=== PATIENT | female | born 1975 | race Caucasian/White ===

== ENCOUNTER 2021-04-21 10:56 | Outpatient (CLI) | payer BC, SELFPAY ==
[2021-04-21 18:34] LABS: Add Urine Microscopic? NO; Appearance Urine Clear (Clear); Bilirubin Urine Negative (Negative); Blood Urine Negative (Negative); Color Urine Yellow (Yellow); Glucose Urine UA Negative (Negative); Ketones Urine Negative (Negative); Leukocyte Esterase Ur Negative LEU/UL (NEGATIVE); Nitrate Urine Negative (Negative); Protein Urine Negative (Negative); Specific Grav Ur 1.014 (1.001-1.035); Urobilinogen Urine Negative mg/dL (<2.0)
== END 2021-04-21 10:57 | disposition home or self-care (01) ==
PROVIDERS: PCP Family Medicine; Visit Provider Family Medicine
DX: M54.5 Low back pain (principal)
CPT/HCPCS: 81003; 87086; 87088

== ENCOUNTER 2021-10-23 09:25 | Outpatient (CLI) | payer BC, SELFPAY ==
[2021-10-23 10:00] LABS: Hematocrit 39.2 % (37.0-47.0); Hemoglobin 13.3 g/dL (12.0-15.0); Mean Corpuscular HGB Conc 33.9 g/dl (32-36); Mean Corpuscular Hemoglobin 30.4 pg (26-34); Mean Corpuscular Volume 89.7 fl (80-100); Mean Platelet Volume 10.6 fl (7.4-10.4); Platelet Count Result 199 k/mm3 (150-375); Red Blood Count 4.37 M/mm3 (4.2-5.4); Red Cell Distribution Width 11.9 % (11.5-14.5); White Blood Count 4.1 K/mm3 (4.5-10.0)
[2021-10-23 10:12] LABS: Alanine Aminotransferase 23 U/L (4-35); Albumin Level 4.3 g/dL (3.5-5.1); Alkaline Phosphatase 92 U/L (38-126); Anion Gap 3 mmol/L (8-16); Aspartate Amino Transferase 26 U/L (14-36); Bilirubin,Total 0.6 mg/dL (0.2-1.3); Blood Urea Nitrogen 15 mg/dL (7-17); Calcium 9.1 mg/dL (8.4-10.2); Carbon Dioxide 30 mmol/L (22-30); Chloride 103 mmol/L (98-107); Cholesterol 186 mg/dL (0-200); Estimated Glomerular Filt Rate > 60; Glucose 95 mg/dL (65-110); HDL Direct 64 mg/dL; Potassium 4.5 mmol/L (3.4-5.0); Sodium 136 mmol/L (137-145); Triglycerides 92 mg/dL (<150)
[2021-10-23 10:26] LABS: LDL Cholesterol Direct 97 mg/dL
[2021-10-23 11:36] LABS: Vitamin D 25 Hydroxy 37.4 ng/mL
[2021-10-26 08:48] LABS: Alphahydroxymidazolam NEGATIVE ng/mL (<50); Alphahydroxytriazolam NEGATIVE ng/mL (<50); Amphetamines NEGATIVE ng/mL (<500); Barbiturates NEGATIVE ng/mL (<300); Benzodiazepines POSITIVE ng/mL (<100); Cocaine Metabolite NEGATIVE ng/mL (<100); Hydroxyethylflurazepam NEGATIVE ng/mL (<50); Lorazepam NEGATIVE ng/mL (<50); Marijuana Metabolite NEGATIVE ng/mL (<20); Methadone Metabolite NEGATIVE ng/mL (<100); Opiates NEGATIVE ng/mL (<100); Oxidant NEGATIVE mcg/mL (<200); Temazepam NEGATIVE ng/mL (<50); pH 5.9 (4.5-9.0)
== END 2021-10-23 09:26 | disposition home or self-care (01) ==
LOC: ANHLAB 09:28
PROVIDERS: PCP Family Medicine; Visit Provider Family Medicine
DX: R74.8 Abnormal levels of other serum enzymes (principal); E55.9 Vitamin D deficiency, unspecified; E78.5 Hyperlipidemia, unspecified; F41.9 Anxiety disorder, unspecified; K58.9 Irritable bowel syndrome, unspecified; Z00.00 Encounter for general adult medical examination without abnormal findings; R63.5 Abnormal weight gain; R51.9 Headache, unspecified
CPT/HCPCS: 36415; 80053; 80061; 80299; 82306; 83036; 84443; 85027

== ENCOUNTER 2022-08-04 10:10 | Outpatient (CLI) | payer BC, SELFPAY ==
--- NOTE | ~2022-08-04 | CT_ITS ---
EXAMINATION: CT pelvis wo con DATE: 08/04/2022 10:27 INDICATION: Left groin pain. TECHNIQUE: High resolution computed tomography (CT) of the pelvis was performed without intravenous c ontrast. Additional sagittal and coronal reconstructions were performed. Automated exposure control a nd iterative reconstruction technique were employed. The dose-length product was 651.55 mGy-cm. COMPARISON: FINDINGS: Visualized portion of the bowels are normal with no obstruction. Normal appendix. Very small fat-cont aining umbilical hernia. No inguinal hernia. The uterus and right ovary are not identified and have l ikely been surgically resected. 1.5 cm left adnexal cyst. Decompressed bladder is normal. No free flu id in the pelvis. No pathologically enlarged pelvic or inguinal lymphadenopathy. Mild lower lumbar sp ondylosis and mild bilateral hip and sacroiliac osteoarthritis. IMPRESSION: 1. 1.5 cm left adnexal cyst. No inguinal hernia or other acute intrapelvic process. Reviewed, dictated and finalized at location A. IMPRESSION: 1. 1.5 cm left adnexal cyst. No inguinal hernia or other acute intrapelvic proc ess.
== END 2022-08-04 10:11 | disposition home or self-care (01) ==
LOC: CHSIMG 10:11
PROVIDERS: PCP Family Medicine; Visit Provider Surgery
DX: R10.32 Left lower quadrant pain (principal)
CPT/HCPCS: 72192

== ENCOUNTER 2023-06-06 13:30 | Outpatient (CLI) | payer OTHER, SELFPAY | END 2023-06-06 13:31 | disposition home or self-care (01) | LOC: ANHBWCIMG 13:32 | PROVIDERS: PCP Family Medicine; Visit Provider Family Medicine | DX: M25.561 Pain in right knee (principal) | CPT/HCPCS: 73562 ==

== ENCOUNTER 2023-10-12 09:45 | Outpatient (CLI) | payer OTHER, SELFPAY ==
--- NOTE | ~2023-10-12 | US_ITS ---
Pelvic ultrasound. Clinical History: Left adnexal cyst Technique: Realtime transabdominal and transvaginal scanning of the pelvis was performed. Color flow Doppler and Doppler spectral analysis were performed. Findings: There is a 2.0 x 1.7 x 1.6 cm high left adnexal cyst. This probably correlates with finding s on prior CT scan dated 08/04/2022. Uterus not seen. No normal ovary visualized. There is no evidence of free fluid in the cul de sac. Impression: 2.0 x 1.7 x 1.6 cm left-sided adnexal cystic mass, which is probably essentially unchanged since 2021. Reviewed, dictated and finalized at location . [employer] Impression: 2.0 x 1.7 x 1.6 cm left-sided adnexal cystic mass, which is probably essentiall y unchanged since 08/04/2022.
== END 2023-10-12 09:46 | disposition home or self-care (01) ==
LOC: CHSIMG 09:46
PROVIDERS: PCP Nurse Practitioner Adult Health; Visit Provider Obstetrics & Gynecology
DX: N94.89 Other specified conditions associated with female genital organs and menstrual cycle (principal); N83.8 Other noninflammatory disorders of ovary, fallopian tube and broad ligament
CPT/HCPCS: 76856

== ENCOUNTER 2023-12-08 01:17 | Day surgery (SDC) | payer OTHER, SELFPAY ==
[2023-11-24 12:12] VITALS: BMI 27.3
--- NOTE | 2023-11-24 12:18 | PC.NURSE ---
Report to the Outpatient Waiting Room, entrance under the green pavilion located off [facility], at time 0730 on date 12/08/23. Planned Procedure Time: 0930. Time changes happen often and if your time is changed the preop area will call you the afternoon before. - You and your visitor will be asked to self-screen and do not enter if you have any COVID symptoms. - A mask is optional within the hospital at this time. Patients may have clear liquids (water, carbonated beverages, clear teas, apple juice) until 3 hours prior to surgery with a maximum of 20 ounces. - No food from midnight until time of surgery Take the following medications with a SIP of water the morning of surgery: ALPRAZOLAM IF NEEDED DO NOT STOP ANY OF YOUR OTHER PRESCRIPTION MEDICATIONS PRIOR TO SURGERY ?EXCEPT THE FOLLOWING Medications to discontinue per physician: VITAMINS Date to take last dose: PT NOT STARTING UNTIL AFTER SURGERY Please no make-up, nail greenlandic, hairspray, perfume, deodorant, or body powder the day of surgery. No jewelry (including any body piercings) or valuables the day of surgery, leave them at home. Please take a shower or bath the night before, or the morning of, surgery with an antibacterial soap. Wear comfortable, loose fitting clothing. - Jewelry must be removed prior to entering the operating room. Rings and piercings that are not removed may be cut off. - The hospital will not accept responsibility for valuables. - Please leave all valuables, including medications, at home the day of surgery. If you are going home after surgery, a licensed local company refrigerated truck driver must drive you home. - NO public transportation without another adult if you receive anesthesia. - We recommend that an adult stay with you for 24 hours following discharge. - We also recommend that you do not drive, make important decision, drink alcoholic beverages, or take any drugs that were not prescribed by your health care provider for at least 24 hours after your discharge time. Follow any additional instructions given to you from your surgeon. If you or anyone in your household have experienced Covid symptoms in the past week, please notify your surgeon or the nurse liaison at the phone number below for possible testing. Telephone instructions given to PT - YAZAN CASH and asked if any additional questions and then verbalized understanding. Patient advised to call surgeon office or pre surgery nurse liaison [phone] if any additional questions.
--- NOTE | 2023-12-06 16:59 | PM.IMHP ---
H&P: HPI History of Present Illness Date/Time: 12/06/23 16:59 47-year-old female presents for evaluation of left lower quadrant pain. Pain is intermittently sharp and dull, also dull and aching at times. Cell both myself and General surgery last year and no specific intervention has no specific etiology could be illicitated. She is again seen Dr. Eldridge who will be available if needed with her laparoscopic evaluation. Also had a pelvic ultrasound which was unchanged from prior and shows a small left adnexal cyst to approximately 2-3 cm the patient is also undergone multiple laparoscopic evaluations with adhesiolysis in the past. Has had a hysterectomy as well as bilateral salpingo oophorectomy in separate procedures and is currently on estradiol due to menopause. Chief Complaint: left lower quadrant pain Review of Systems Review of Systems: All systems reviewed & are unremarkable except as noted in HPI and below PMFSH Past Medical History Medical History Abdominal pain Anxiety Depression History of frequent headaches Hypoestrogenism IBS (irritable bowel syndrome) Other local company intermodal truck driver (current) drug therapy Seasonal allergies Surgical History Surgical History History of History of laparoscopy 5 lscope surgeries for adhesions/pelvic pain History of right salpingo-oophorectomy (~2009) History of total abdominal hysterectomy (~2004) JAMAR w/LSO--benign condition Family History Family History Father Enlarged heart Congestive heart failure Hypertension Grandparent , 65 Cerebrovascular accident Mother Hypertension Kidney disease Social History Social History Smoking packs per day: 0.5 Smoking cigarettes per day: 10.0 Years smoked: 10 Smoking pack-years: 5.00 Smoking status: Former smoker Tobacco type: cigarettes Smoking end date: 11/28/02 Alcohol intake: never Substance use: never Substance use type: does not use Lack of Transportation: No Lack of Food: Never True Current Housing: I Have Housing Concerned About Future Housing: No Difficulty Paying Gas/Electric Bills: No Difficulty Paying for Meds: No Currently Unemployed: No Education: Master's Degree or Higher Difficulty w/ Childcare or Family Care: No Living arrangements: with family Additional living arrangements comments: Occupation/Education: occupation 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 Gender identity (if verbalized by the patient): Female Sexual Orientation (if Verbalized by the Patient): Straight or Heterosexual Spiritual care concerns: No Meds Home Medications and Allergies Home Medications Medication Instructions Recorded Confirmed Type cetirizine 10 mg tablet (Zyrtec) 10 mg PO DAILY #90 tabs 09/06/23 11/24/23 Rx alprazolam 0.5 mg tablet (Xanax) 0.5 mg PO BID PRN anxiety #60 tabs 10/11/23 11/24/23 Rx cholecalciferol (vitamin D3) 1,250 1,250 mcg PO WEEKLY #12 caps 10/17/23 11/24/23 Rx mcg (50,000 unit) capsule estradiol 1 mg tablet 1 mg PO BID #180 tabs 10/19/23 11/24/23 Rx Allergies Allergy/AdvReac Type Severity Reaction Status Date / Time No Known Allergies Allergy Verified 11/24/23 12:11 Exam Const: General: cooperative and healthy appearing Resp: Effort & Inspection: normal respiratory effort Auscultation: clear to auscultation bilaterally Cardio: Rate: regular rate Rhythm: regular rhythm GI: Inspection: normal to inspection and incision GI Palp: Yes Tenderness to palpation present (GI) ( Left of midline in the area of incision) : External Female Exam: normal external appearance Speculum Exam - Vagina: normal appearance of the vagina Speculum Exam - Cervix: Cervix absent Bima
[2023-12-08] VITALS (8 sets, daily range): BP systolic 131–157; BP diastolic 74–97; PULSE 56–87; RESP 10–20; TEMP 36.1–36.3; O2SAT 98–100
--- NOTE | 2023-12-08 07:15 | WPDHPUPDATE1 ---
History and Physical Update Update Date/Time: 12/08/23 07:15 Proceed with robotic laparoscopy possible cystectomy, possible hernia repair if identified History and Physical has been reviewed, including an updated exam of the patient. There are NO changes in the patient's condition. Risks, benefits, and alternatives have been discussed and questions answered. Patient agrees to proceed with procedure.
[2023-12-08] MEDS: LACTATED RINGERS 1,000 ML 30 ML IV CONT (07:40)
[2023-12-08] MEDS: ACETAMINOPHEN 500 MG TABLET 1000 MG PO (07:42)
[2023-12-08] MEDS: KETOROLAC 15 MG/ML VIAL (*BKC) IV PUSH (07:42)
--- NOTE | 2023-12-08 08:03 | WPDANESEPPF ---
Anes - Initial Pre Proc Eval Procedure: Operation Date: 12/08/23 09:30 Proposed Procedures p Diagnostic Laparoscopy Lysis of Adhesions, Possible Fulguration of Endometriosis - Sherman Dowell MD Date/Time: 12/08/23 08:03 Surgeon: Sherman Dowell MD Pre Op Diagnosis: left adnexal mass, pelvic mass Patient Data Age: 47 Gender: F Height: 1.73 m Weight: 81.6 kg Allergies Allergy/AdvReac Type Severity Reaction Status Date / Time No Known Allergies Allergy Verified 12/08/23 07:59 Home Medications Medication Instructions Recorded Confirmed Type cetirizine 10 mg tablet (Zyrtec) 10 mg PO DAILY #90 tabs 09/06/23 12/08/23 Rx cholecalciferol (vitamin D3) 1,250 1,250 mcg PO WEEKLY #12 caps 10/17/23 12/08/23 Rx mcg (50,000 unit) capsule estradiol 1 mg tablet 1 mg PO BID #180 tabs 10/19/23 12/08/23 Rx alprazolam 0.5 mg tablet (Xanax) 0.5 mg PO BID PRN anxiety #60 tabs 12/07/23 12/08/23 Rx Patient hx anesthesia problems: none Family hx anesthesia problems: none Results Review: All pre-operative results and documents have been reviewed as part of the pre-operative evaluation. [facility] Past Medical History Medical History Abdominal pain Anxiety Depression History of frequent headaches Hypoestrogenism IBS (irritable bowel syndrome) Other detention (current) drug therapy Seasonal allergies Surgical History Surgical History History of History of laparoscopy 5 lscope surgeries for adhesions/pelvic pain History of right salpingo-oophorectomy (~2009) History of total abdominal hysterectomy (~2004) JAMAR w/LSO--benign condition Family History Family History Father Enlarged heart Congestive heart failure Hypertension Grandparent , 65 Cerebrovascular accident Mother Hypertension Kidney disease Social History Social History Smoking packs per day: 0.5 Smoking cigarettes per day: 10.0 Years smoked: 10 Smoking pack-years: 5.00 Smoking status: Former smoker Tobacco type: cigarettes Smoking end date: 11/28/02 Alcohol intake: never Substance use: never Substance use type: does not use Lack of Transportation: No Lack of Food: Never True Current Housing: I Have Housing Concerned About Future Housing: No Difficulty Paying Gas/Electric Bills: No Difficulty Paying for Meds: No Currently Unemployed: No Education: Master's Degree or Higher Difficulty w/ Childcare or Family Care: No Living arrangements: with family Additional living arrangements comments: Occupation/Education: occupation Additional occupation/education comments: peace officer Gender identity (if verbalized by the patient): Female Sexual Orientation (if Verbalized by the Patient): Straight or Heterosexual Spiritual care concerns: No Anes - Eval Final PreProcedure Day of Procedure 12/08/23 08:03 Patient weight: overweight Heart: regular rate and rhythm Lungs: clear to auscultation Airway: Mallampati scale class II Neurological: alert and oriented Last oral intake: >/= 8 hours ASA classification: II Emergent: no Anesthetic plan: proceed Anesthesia type and monitoring: general ETT and standard monitoring Results Review: All pre-operative results and documents have been reviewed as part of the pre-operative evaluation. Informed Consent: The patient's anesthetic plan and its attendant risks and benefits were discussed with the patient/family/POA. Questions were solicited and answers provided to the satisfaction of the patient/family/POA.
[2023-12-08] MEDS: ceFAZolin SODIUM 1 GM VIAL 2 GM IV PUSH (09:47)
--- NOTE | 2023-12-08 10:38 | W.PM.PROC2 ---
Procedure Note - Detailed Date of Procedure 12/08/23 Pre-op Diagnosis 1. Left lower quadrant pain 2. Left adnexal cyst Post-op Diagnosis Same Procedure Performed 1. left peritoneal occlusion cyst removal 2. left partial salpingectomy with paratubal cyst removal Surgeon Sherman Dowell MD Anesthesia General Findings 1. peritoneal inclusion cyst 2. left partial salpingectomy/paratubal cyst 3. no evidence of hernia 4. no other adhesions/endometriosis Description of Procedure Patient prepped draped usual manner for this procedure. Abdominal trocar sites were marked and trocars were placed under direct visualization. The instruments were attached to the [employer] system and surgeon moved to the console. Thorough evaluation of the pelvis showed evidence of prior hysterectomy as well as bilateral salpingo oophorectomy. Right adnexa with no evidence of cystic structures or remaining tubal segments. Left peritoneal cyst was noted, as well as small segment of left fallopian tube with paratubal cyst attached to this as well. There was no other significant pathology noted. The left tubal segment and inclusion cyst was from the omentum and readily removed, left peritoneal cyst was also removed in totality. There was no bleeding thorough evaluation of the anterior abdominal wall both in the area of discomfort as well as throughout revealed no evidence of herniation. Small diastasis was noted in the midline but this was not significant as it was less than 1cm. At this point the procedure was considered terminated, gas was allowed to escape, incisions were approximated using 0 Monocryl after the trocars were removed. Patient was then sent to recovery room in stable condition. Estimated Blood Loss 10 Drains No Packing No Pathology Yes Complications No immediate complications Condition Stable Disposition PACU [facility] Billing Surgery - Charge Forward: Surgery Billing
[2023-12-08] MEDS: fentaNYL CITRATE INJ (*CRX) 100 MCG/2 ML VIAL 25 MCG IV PUSH ×8 (11:09→11:35)
[2023-12-08] MEDS: oxyCODONE HCL (*CRX) 5 MG TAB IR PO (12:14)
== END 2023-12-08 13:05 | disposition home or self-care (01) ==
PROVIDERS: PCP Nurse Practitioner Adult Health; Visit Provider Obstetrics & Gynecology
PROC: (CPT 49320; principal; 2023-12-08 09:30)
DX: N83.8 Other noninflammatory disorders of ovary, fallopian tube and broad ligament (principal); K66.8 Other specified disorders of peritoneum; F41.9 Anxiety disorder, unspecified; F32.A Depression, unspecified; K58.9 Irritable bowel syndrome, unspecified; Z79.899 Other long term (current) drug therapy; Z90.722 Acquired absence of ovaries, bilateral; Z98.890 Other specified postprocedural states; Z87.891 Personal history of nicotine dependence; Z82.49 Family history of ischemic heart disease and other diseases of the circulatory system
CPT/HCPCS: 58662; 58661; 88302; 88305; A9270; J0690; J1100; J1170; J1200; J1885; J2250; J2405; J2704; J3010; J7030; J7120

== ENCOUNTER 2024-04-10 08:27 | Outpatient (CLI) | payer OTHER, SELFPAY ==
[2024-04-10 19:14] LABS: Vitamin D 25 Hydroxy 30.9 ng/mL
[2024-04-10 21:06] LABS: Alanine Aminotransferase 28 U/L (6-35); Albumin Level 4.3 g/dL (3.5-5.1); Alkaline Phosphatase 117 U/L (38-126); Anion Gap 7 mmol/L (4-12); Aspartate Amino Transferase 53 U/L (14-36); Bilirubin,Total 0.6 mg/dL (0.2-1.3); Blood Urea Nitrogen 12 mg/dL (7-17); Carbon Dioxide 26 mmol/L (22-30); Chloride 106 mmol/L (98-107); Cholesterol 183 mg/dL (0-200); Estimated Glomerular Filt Rate > 60; Glucose 87 mg/dL (65-110); HDL Direct 61 mg/dL; Potassium 4.4 mmol/L (3.4-5.0); Sodium 139 mmol/L (137-145); Triglycerides 228 mg/dL (<150)
[2024-04-10 21:17] LABS: LDL Cholesterol Direct 90 mg/dL
== END 2024-04-10 08:28 | disposition home or self-care (01) ==
LOC: ANHBWCLAB 08:28
PROVIDERS: PCP Nurse Practitioner Adult Health; Visit Provider Nurse Practitioner Adult Health
DX: E78.5 Hyperlipidemia, unspecified (principal); E55.9 Vitamin D deficiency, unspecified
CPT/HCPCS: 36415; 80053; 80061; 82306

== ENCOUNTER 2024-04-26 07:40 | Outpatient (CLI) | payer OTHER, SELFPAY ==
--- NOTE | ~2024-04-26 | MM_ITS ---
EXAMINATION: MM screening joby BI w philippe HISTORY: Screening TECHNIQUE: Craniocaudal and mediolateral oblique 3-D tomosynthesis images were obtained and synthetic 2-D images were generated. CAD analysis was submitted and interpreted. COMPARISON: 03/12/2015 BREAST PARENCHYMAL COMPOSITION: The breasts are heterogeneously dense, which may obscure small masses . FINDINGS: There is new focal area of asymmetry superiorly and posteriorly in the right breast on MLO view. This is not appreciated on CC view. The left breast is stable without evidence for malignancy. IMPRESSION: 1. Focal right breast asymmetry superiorly and laterally on MLO view. 2. Additional mammographic views and possible breast ultrasound are recommended. BI-RADS Category 0: Incomplete: Needs additional imaging evaluation. Reviewed, dictated and finalized at location B. IMPRESSION: 1. Focal right breast asymmetry superiorly and laterally on MLO view. 2. Additional mammographic views and possible breast ultrasound are recommended . BI-RADS Category 0: Incomplete: Needs additional imaging evaluation.
== END 2024-04-26 07:41 | disposition home or self-care (01) ==
LOC: CHSIMG 07:40
PROVIDERS: PCP Nurse Practitioner Adult Health; Visit Provider Nurse Practitioner Adult Health
DX: Z12.31 Encounter for screening mammogram for malignant neoplasm of breast (principal); R92.8 Other abnormal and inconclusive findings on diagnostic imaging of breast
CPT/HCPCS: 77063; 77067

== ENCOUNTER 2024-04-30 09:33 | Outpatient (CLI) | payer OTHER, SELFPAY ==
--- NOTE | ~2024-04-30 | MM_ITS ---
EXAMINATION: MM diagnostic mammo unilat RT HISTORY: Asymmetric density upper right breast TECHNIQUE: Additional spot compression 3-D tomosynthesis images of the upper, posterior right were pe rformed and synthetic 2-D images were generated. CAD analysis was submitted and interpreted. COMPARISON: 04/26/2024 FINDINGS: Breast parenchyma is heterogeneously dense. The focal asymmetry in the upper, posterior rig ht breast effaces with spot compression. No persistent mass lesion or distortion seen. IMPRESSION: No mammographic evidence for malignancy. BI-RADS Category 1: Negative Reviewed, dictated and finalized at location M.
== END 2024-04-30 09:34 | disposition home or self-care (01) ==
LOC: CHSIMG 09:35
PROVIDERS: PCP Nurse Practitioner Adult Health; Visit Provider Nurse Practitioner Adult Health
DX: R92.8 Other abnormal and inconclusive findings on diagnostic imaging of breast (principal)
CPT/HCPCS: 77065